=== PATIENT | female | born 1970 | race Caucasian/White ===

== ENCOUNTER 2016-10-10 18:50 | Emergency (ER) | payer SELFPAY ==
[2016-10-10 19:07] VITALS: BP 137/72
--- NOTE | 2016-10-10 19:29 | UC ---
Respiratory Complaint HPI - HPI Summary HPI Summary: 46 y/o female presents to the urgent care c/o chest congestion w/productive cough for the past 4 days. Pt reports she has HX of Pneumonia last winter and her symptoms are very similar. Pt states her cough is producing a yellowish phlegm w/ blood streaks. She feel SOB at times. Today she has a mild headache 4 /10. She states she lives in [place] and she is visiting and is returning the next Wednesday. She doesn't have her albuterol inhaler with her. Pt denies fever , chest pain,nasal congestion, N/V/D. Pt has not other complains. - History of Current Complaint Chief Complaint: UCRespiratory Stated Complaint: COUGH/CHEST CONGESTION Time Seen by Provider: 10/10/16 19:14 Hx Obtained From: Patient Hx Last Menstrual Period: 2 months ?: No Onset/Duration: Gradual Onset, Lasting Days, Still Present Timing: Constant Severity Currently: Moderate Pain Intensity: 4 - Headache Pain Scale Used: 0-10 Numeric Character: Cough: Nonproductive - yellowish w/ blood streaks Alleviating Factors: Nothing Associated Signs And Symptoms: Positive: Dyspnea - Allergies/Home Medications Allergies/Adverse Reactions: Allergies Allergy/AdvReac Type Severity Reaction Status Date / Time No Known Allergies Allergy Verified 10/10/16 19:07 PMH/Surg Hx/FS Hx/Imm Hx Previously Healthy: Yes Respiratory History: Pneumonia - recurrent pneumonias - Surgical History Surgical History: Yes Surgery Procedure, Year, and Place: tonsils - Family History Known Family History: Positive: Hypertension, Diabetes - Social History Occupation: Employed Full-time Lives: With Family Alcohol Use: None Substance Use Type: None Smoking Status (MU): Never Smoked Tobacco Review of Systems Constitutional: Negative Skin: Negative Eyes: Negative ENT: Nasal Discharge - yellowish discharge Respiratory: Shortness Of Breath - at home, Cough - productive w/ yellowish phlegm and blood streaks Cardiovascular: Negative Gastrointestinal: Negative Genitourinary: Negative Motor: Negative Neurovascular: Negative Musculoskeletal: Negative Neurological: Negative Psychological: Negative All Other Systems Reviewed And Are Negative: Yes Physical Exam Triage Information Reviewed: Yes Appearance: Well-Appearing, No Pain Distress, Well-Nourished, Obese Vital Signs: Initial Vital Signs Temp 98.9 F 10/10/16 18:58 Pulse 74 10/10/16 18:58 Resp 16 10/10/16 18:58 BP 137/72 10/10/16 18:58 Pulse Ox 100 10/10/16 18:58 Vital Signs Reviewed: Yes Eye Exam: Normal Eyes: Positive: Conjunctiva Clear - PERRLA, EOMI, fundi grossly normal ENT Exam: Normal ENT: Positive: Normal ENT inspection, Hearing grossly normal, Pharynx normal, Nasal congestion - edematous nasal mucosa w/ yellowish discharge Dental Exam: Normal Neck exam: Normal Neck: Positive: Supple, Nontender, No Lymphadenopathy Respiratory Exam: Normal Respiratory: Positive: Chest non-tender, Normal breath sounds, Crackles - at the posterior left lung Cardiovascular Exam: Normal Cardiovascular: Positive: RRR, No Murmur, Pulses Normal, Brisk Capillary Refill Abdominal Exam: Normal Abdomen Description: Positive: Nontender, No Organomegaly, Soft. Negative: CVA Tenderness (R), CVA Tenderness (L) Bowel Sounds: Positive: Present Musculoskeletal Exam: Normal Musculoskeletal: Positive: Strength Intact, ROM Intact, No Edema Neurological Exam: Normal Psychological Exam: Normal Skin Exam: Normal UC Diagnostic Evaluation - Laboratory O2 Sat by Pulse Oximetry: 100 Respiratory Course/Dx - Course Course Of Treatment: 46 y/o female presents to the urgent care c/o chest congestion w/productive cough for the past 4 days. Pt reports she has HX of Pneumonia last winter and her symptoms are very similar. Pt states her cough is producing a yellowish phlegm w/ blood streaks. She feel SOB at times. Today she has a mild headache 4/10. She states she lives in [place] and she is visiting and is returning the next Wednesday. She doesn't have her albuterol inhaler with her. Pt denies fever, chest pain,nasal congestion, N/V/D.HX obtained. PE abnormal findings:Respiratory: Positive: Chest non-tender, Normal breath sounds, Crackles - at the posterior left lung. Pt with HX or recurrent pneumonia last year. Pt Rx Z-sejal PO. Pt given first dose here at the clinic since pharmacy closed. Rx Albuterol inhaler and Tessalon tabs to alleviate sympotoms. Advised if symptoms do not improve or worsen to return to the urgent care or f/u with her PCP. Pt understood and agreed. - Differential Dx/Diagnosis Differential Diagnosis/HQI/PQRI: Asthma, Bronchitis, Lower Resp Infection, Sinusitis Provider Diagnoses: 1- Acute bronchitis Discharge - Discharge Plan Condition: Stable Disposition: HOME Prescriptions: Albuterol HFA INHALER* [Ventolin HFA Inhaler*] 2 puff INH Q4H PRN #1 mdi PRN Reason: Cough Azithromyxin SEJAL (NF) [Z-Sejal (Zithromax) 250 mg tabs #6] 2 tab PO .TODAY, THEN 1 DAILY #6 tab Benzonatate CAP* [Tessalon 100 MG CAP*] 100 mg PO TID PRN #15 cap PRN Reason: Cough Patient Education Materials: Acute Bronchitis (ED) Referrals: [facility] [Outside] Additional Instructions: Please take full course of antibiotic to avoid resistance. Increase fluid intake and rest. Take ibuprofen q6-8hrs prn for your headache. If symptoms do not improve or worsen please return to the urgent care or f/u with your PCP for further evaluation and treatment
[2016-10-10] MEDS ORDERED: Azithromycin TAB* 250 MG PO ONE (19:33)
== END 2016-10-10 19:41 | disposition home or self-care (01) ==
LOC: UCCORT 18:50
DX: J20.9 Acute bronchitis, unspecified (principal)
CPT/HCPCS: 99202; A9270-GY; G0463